=== PATIENT | male | born 1960 | race Caucasian/White ===

== ENCOUNTER 2024-12-12 04:31 | Emergency (ER) | payer BC ==
[~2024-12-12] VITALS: Ht 188 cm; Wt 97.1 kg
[2024-12-12] MEDS ORDERED: METO-356 (04:43)
[2024-12-12] MEDS ORDERED: CLOP75TA33 (04:43)
[2024-12-12] MEDS ORDERED: ASPI-1101 (04:43)
[2024-12-12] MEDS ORDERED: ATOR40TA29 (04:43)
[2024-12-12] MEDS ORDERED: LOSA25TA3 (04:43)
[2024-12-12] MEDS ORDERED: ASPIRIN 81 MG TAB.CHEW ONE (04:48)
[2024-12-12] MEDS ORDERED: NITROGLYCERIN 0.4 MG/TAB BOTTLE SL ONE (04:48)
[2024-12-12] MEDS: ASPIRIN 81 MG TAB.CHEW PO ONE (04:50)
[2024-12-12] MEDS: NITROGLYCERIN 0.4 MG/TAB BOTTLE SL ONE (04:51)
[2024-12-12] MEDS ORDERED: NITROGLYCERIN OINT 1 GM PACKET TP ONE (04:51)
[2024-12-12] MEDS: NITROGLYCERIN OINT 1 GM PACKET TP ONE (04:53)
[2024-12-12 05:04] LABS: BASOPHILS % (AUTO) 0.3 % (0.0-2.0); DIFFERENTIAL COMMENT 1; EOSINOPHILS # (AUTO) 0.1 K/uL (0.0-0.7); EOSINOPHILS % (AUTO) 1.6 % (0.0-7.0); HEMATOCRIT 43.2 % (36.7-47.1); HEMOGLOBIN 14.7 g/dL (12.5-16.3); LYMPHOCYTES # (AUTO) 1.8 K/uL (0.8-4.8); LYMPHOCYTES % (AUTO) 24.4 % (20.5-51.5); MEAN CORPUSCULAR HEMOGLOBIN 30.8 uug (23.8-33.4); MEAN CORPUSCULAR HGB CONC 34 g/dL (32.5-36.3); MEAN CORPUSCULAR VOLUME 90.3 fL (73.0-96.2); MONOCYTES # (AUTO) 0.5 K/uL (0.1-1.30); MONOCYTES % (AUTO) 6.5 % (0.0-11.0); NEUTROPHILS % (AUTO) 67.2 % (38.5-71.5); PLATELET COUNT (AUTO) 184 K/uL (152-348); RED BLOOD CELL COUNT(AUTO) 4.79 MIL/uL (4.06-5.63); RED CELL DISTRIBUTION WIDTH 12.7 % (12.1-16.2); WHITE BLOOD COUNT (AUTO) 7.4 K/uL (3.6-10.2)
[2024-12-12 05:08] LABS: CALCIUM 8.7 mg/dL (8.5-10.1); CARBON DIOXIDE 27 mmol/L (21-32); CHLORIDE 104 mmol/L (98-107); CREATININE 0.9 mg/dL (0.6-1.3); GLUCOSE 121 mg/dL (74-106); POTASSIUM 3.9 mmol/L (3.5-5.1); SODIUM SERUM 141 mmol/L (136-145); UREA NITROGEN, BLOOD 12 mg/dL (7-18)
[2024-12-12 05:24] LABS: ALANINE AMINOTRANSFERASE 53 U/L (16-63); ALBUMIN 3.8 g/dL (3.4-5.0); ALKALINE PHOSPHATASE 69 U/L (50-136); ASPARTATE AMINOTRANSFERASE 21 U/L (15-37); BILIRUBIN,DIRECT 0.2 mg/dL (0.0-0.2); BILIRUBIN,TOTAL 0.6 mg/dL (0.2-1.0); NT-PRO BNP 136 pg/mL (0-125); TOTAL PROTEIN, SERUM 6.7 g/dL (6.4-8.2)
[2024-12-12 06:03] VITALS: BP 134/84
== END 2024-12-12 06:05 | disposition left against medical advice (07) ==
LOC: ER 04:31
DX: I24.0 Acute coronary thrombosis not resulting in myocardial infarction (principal); R07.89 Other chest pain; R06.02 Shortness of breath; R94.31 Abnormal electrocardiogram [ECG] [EKG]; E78.5 Hyperlipidemia, unspecified
CPT/HCPCS: 36415; 71045; 84484; 85025; A4606; A4663